=== PATIENT | female | born 1965 ===

== ENCOUNTER 2017-11-24 10:59 | Emergency (ER) | payer OTHER ==
[2017-11-24 11:10] VITALS: BMI 22.6
[2017-11-24 11:15] VITALS: RESP 18; TEMP 98; O2SAT 100
--- NOTE | 2017-11-24 11:16 | C.PDOC ---
History Of Present Illness 52 year old female patient with hx of chronic back pain presents to the ER with c/o 3rd, 4th, and 5th digit pain on the left foot. Patient reports she felt the pain 5 days ago and it has gotten worse. Patient states the pain radiates to the upper portion of her foot and pain increases when that foot is with gravity and when she bears weight. Patient notes that icing her foot does not bring relief and she did not take any pain medication. Time Seen by Provider: 11/24/17 11:04 Chief Complaint (Nursing): Lower Extremity Problem/Injury History Per: Patient History/Exam Limitations: no limitations Onset/Duration Of Symptoms: Days (x5) Current Symptoms Are (Timing): Still Present - Ankle/Foot Currently Unable To: Bear Weight Alleviating Factor(s): denies: Ice Therapy Past Medical History Reviewed: Historical Data, Nursing Documentation, Vital Signs Vital Signs: Last Vital Signs Temp 98 F 11/24/17 11:10 Pulse 71 11/24/17 12:25 Resp 18 11/24/17 12:25 BP 100/67 11/24/17 12:25 Pulse Ox 100 11/24/17 12:25 - Medical History PMH: Arthritis Family History: States: No Known Family Hx - Social History Hx Alcohol Use: No Hx Substance Use: No - Immunization History Hx Tetanus Toxoid Vaccination: No Hx Influenza Vaccination: No Hx Pneumococcal Vaccination: No Review Of Systems Except As Marked, All Systems Reviewed And Found Negative. Musculoskeletal: Positive for: Foot Pain (3rd, 4th, and 5th digit pain on left foot radiating to the upper foot) Physical Exam - Physical Exam Appears: Non-toxic, No Acute Distress Skin: Normal Color, Warm, Dry Head: Normacephalic Extremity: Normal ROM, Tenderness (3rd, 4th, and 5th digit on left foot. 3rd digit hurts the most), No Pedal Edema, No Calf Tenderness, Capillary Refill (<2 sec), No Deformity, No Swelling, No Other (ecchymosis) Pulses: Left Dorsalis Pedis: Normal, Right Dorsalis Pedis: Normal Neurological/Psych: Oriented x3, Normal Speech, Normal Motor, Normal Sensation, Normal Reflexes Gait: Steady ED Course And Treatment O2 Sat by Pulse Oximetry: 100 (RA) Pulse Ox Interpretation: Normal - Other Rad Left foot 3rd digit X-Ray: Interpreted by Me, Viewed By Me Interpretation: No dislocation Medical Decision Making Medical Decision Making: Impression: pain on 3rd, 4th, and 5th digit on left foot Differential Diagnosis: possible arthritis Plans: -- Ibuprofen 600 mg -- tylenol 975 mg -- XR left foot 3rd digit Disposition Counseled Patient/Family Regarding: Diagnosis, Need For Followup, Rx Given - Disposition Disposition: HOME/ ROUTINE Disposition Time: 12:18 Condition: STABLE Prescriptions: Ibuprofen [Motrin] 600 mg PO TID #15 tab Forms: [employer] (Romansh), General Discharge Instructions - POA Present On Arrival: None - Clinical Impression Clinical Impression: Joint pain - Scribe Statement The provider has reviewed the documentation as recorded by the Bhumiibe Deborah Do Provider Attestation: All medical record entries made by the Scribe were at my direction and personally dictated by me. I have reviewed the chart and agree that the record accurately reflects my personal performance of the history, physical exam, medical decision making, and the department course for this patient. I have also personally directed, reviewed, and agree with the discharge instructions and disposition.
[2017-11-24 12:26] VITALS: BP 100/67; PULSE 71
--- NOTE | 2017-11-24 13:03 | RAD ---
Date of service: 11/24/2017 PROCEDURE: Left Foot Radiographs. HISTORY: Pain, no injury COMPARISON: None. FINDINGS: BONES: Bone alignment and mineralization are normal. There is no acute displaced fracture or bone destruction. JOINTS: Normal. SOFT TISSUES: Normal. OTHER FINDINGS: None. IMPRESSION: No acute fracture or dislocation.
== END 2017-11-24 12:26 | disposition home or self-care (01) ==
LOC: C.ER 10:59
DX: M25.572 Pain in left ankle and joints of left foot (principal)

== ENCOUNTER 2018-04-30 10:08 | Outpatient (CLI) | payer OTHER | END 2018-04-30 10:09 | disposition home or self-care (01) | LOC: C.RADIC 10:08 | DX: M54.9 Dorsalgia, unspecified (principal) ==